=== PATIENT | female | born 1995 | race Two or more races ===

== ENCOUNTER 2018-10-19 12:18 | Inpatient (IN) | payer MEDICAID ==
[~2018-10-19] VITALS: Ht 157.5 cm; Wt 63.5 kg
[2018-10-19 13:18] LABS: APPEARANCE,URINE CLEAR (CLEAR); BILIRUBIN,URINE NEGATIVE (NEGATIVE); GLUCOSE, URINE (UA) NEGATIVE (NEGATIVE); KETONES,URINE NEGATIVE (NEGATIVE); LEUKOCYTE ESTERASE ,URINE NEGATIVE (NEGATIVE); NITRATE,URINE NEGATIVE (NEGATIVE); OCCULT BLOOD,URINE NEGATIVE (NEGATIVE); PH,URINE 6.5 (5.0-8.0); PROTEIN,URINE TRACE (NEGATIVE); UROBILINOGEN,URINE 0.2 mg/dL (<=1.0)
[2018-10-19 13:27] LABS: AMPHET/METH SCREEN,URINE NEGATIVE (NEGATIVE); BARBITURATE SCREEN, URINE NEGATIVE (NEGATIVE); BENZODIAZEPINES SCREEN,URINE NEGATIVE (NEGATIVE); CANNABINOID SCREEN,URINE POSITIVE (NEGATIVE); COCAINE SCREEN,URINE NEGATIVE (NEGATIVE); METHADONE SCREEN, URINE NEGATIVE (NEGATIVE); OPIATE SCREEN,URINE NEGATIVE (NEGATIVE)
[2018-10-19 13:28] LABS: BACTERIA,URINE None Seen /HPF (None Seen); RBC,URINE None Seen /HPF (0-2); SQUAMOUS EPITHELIAL CELL,UR Moderate /LPF (None Seen); WBC,URINE 0-2 /HPF (0-5)
[2018-10-19 13:29] LABS: PHENCYCLIDINE SCREEN,URINE NEGATIVE (NEGATIVE)
[2018-10-19] MEDS ORDERED: HALOPERIDOL LACTATE 5 MG/ML VIAL IM ONE (14:15)
[2018-10-19] MEDS ORDERED: LORazepam 2 MG/ML VIAL IM ONE (14:15)
[2018-10-19] MEDS ORDERED: DiphenhydrAMINE HCL 50 MG/ML VIAL IM ONE (14:15)
[2018-10-19] MEDS ORDERED: HALOPERIDOL 5 MG TABLET PO PRN (17:30)
[2018-10-19] MEDS ORDERED: DOCUSATE SODIUM 100 MG CAPSULE PO PRN (20:45)
[2018-10-19] MEDS ORDERED: ACETAMINOPHEN 325 MG TABLET PO PRN (20:45)
[2018-10-19] MEDS ORDERED: LOPERAMIDE HCL 2 MG CAPSULE PO PRN (20:45)
[2018-10-19] MEDS ORDERED: NICOTINE 14 MG/24 HOUR PATCH TD PRN (20:45)
[2018-10-19] MEDS ORDERED: CloNIDine HCL 0.1 MG TABLET PO PRN (20:45)
[2018-10-19] MEDS ORDERED: MAG HYDROX/AL HYDROX/SIMETH ES 30 ML SUSPENSION UDCUP PO PRN (20:45)
[2018-10-19] MEDS ORDERED: PETROLATUM,WHITE 28 GM JELLY TP PRN (20:45)
[2018-10-19] MEDS ORDERED: MAGNESIUM HYDROXIDE SUSPENSION 30 ML UDCUP PO PRN (20:45)
[2018-10-19] MEDS ORDERED: ONDANSETRON HCL 4 MG TABLET PO PRN (20:45)
[2018-10-19] MEDS ORDERED: GuaiFENesin/D-METHORPHAN [SUGAR-FREE] 200-20MG/10 ML SYRUP UDCUP PO PRN (20:45)
[2018-10-19] MEDS ORDERED: IBUPROFEN 400 MG TABLET PO PRN (20:45)
[2018-10-19] MEDS ORDERED: ALBUTEROL SULFATE HFA 90 MCG/PUFF 8 GM INHALER IH PRN (20:45)
[2018-10-19 22:35] VITALS: BP 138/76
[2018-10-20 10:35] VITALS: BP 144/93
[2018-10-20] MEDS: LORazepam 2 MG TABLET PO PRN ×2 (11:30→17:57)
[2018-10-20] MEDS ORDERED: LORazepam 1 MG TABLET PO PRN (13:15)
[2018-10-20] MEDS: ESCITALOPRAM OXALATE 10 MG TABLET PO SCH (14:10)
[2018-10-20 18:00] VITALS: BP 139/84
[2018-10-20] MEDS: ZOLPIDEM TARTRATE 10 MG TABLET PO PRN (20:25)
[2018-10-20] MEDS: QUEtiapine FUMARATE 25 MG TABLET PO SCH (20:25)
[2018-10-21 08:45] VITALS: BP 156/96
[2018-10-21] MEDS: ESCITALOPRAM OXALATE 10 MG TABLET PO SCH (08:54)
[2018-10-21] MEDS: LORazepam 2 MG TABLET PO PRN (12:52)
[2018-10-21] MEDS: ZOLPIDEM TARTRATE 10 MG TABLET PO PRN (20:17)
[2018-10-21] MEDS: QUEtiapine FUMARATE 25 MG TABLET PO SCH (20:17)
[2018-10-22] MEDS: LORazepam 2 MG TABLET PO PRN (04:25)
[2018-10-22 04:26] VITALS: BP 132/83
[2018-10-22] MEDS ORDERED: ESCITALOPRAM OXALATE 20 MG TABLET PO SCH (09:00)
[2018-10-22] MEDS ORDERED: AmLODIPine BESYLATE 2.5 MG TABLET PO SCH (09:00)
[2018-10-22 11:45] VITALS: BP 118/72
[2018-10-22] MEDS ORDERED: QUET25TA PO (14:01)
[2018-10-22] MEDS ORDERED: AMLO2.5T4 PO (14:01)
[2018-10-22] MEDS ORDERED: ESCI20TA PO (14:01)
== END 2018-10-22 16:15 | disposition home or self-care (01) | DRG 751 ==
LOC: EMS 12:20 → 3EC 21:42
PROVIDERS: ADMIT Psychiatry & Neurology Psychiatry; ATTEND Psychiatry & Neurology Psychiatry
DX: F33.9 Major depressive disorder, recurrent, unspecified (principal); R45.851 Suicidal ideations; Z91.19 Patient's noncompliance with other medical treatment and regimen; F60.9 Personality disorder, unspecified; Z91.5 Personal history of self-harm; Z79.899 Other long term (current) drug therapy
CPT/HCPCS: 72040; J1200; J1630; J2060